=== PATIENT | female | born 1970 | race African-American/Black ===

== ENCOUNTER 2018-06-18 10:12 | Emergency (ER) | payer SELFPAY ==
[2018-06-18 10:55] LABS: Bilirubin Negative (Negative); Blood, Urine Negative (Negative); Clarity CLEAR (Clear); Glucose, Urine (Dipstick) Negative (Negative); Leukocyte Negative (Negative); Nitrite Negative (Negative); Protein, Urine (Dipstick) Negative (Neg-Trace); Specific Gravity, Urine 1.006 (1.002-1.036); Urobilinogen 0.2 mg/dL (0.2-1.0); pH, Urine 7.5 (5.0-9.0)
--- NOTE | 2018-06-18 10:56 | RAD ---
CHEST 1 VIEW: Date: 06/18/18 HISTORY: Cough. FINDINGS: Heart size and mediastinum are within normal limits. Lungs are clear of any infiltrative process. No significant bony findings. IMPRESSION: No active intrathoracic disease. POS: [facility]
[2018-06-18 10:57] LABS: Pregnancy Test - Urine (BHCG) Negative (Negative); Pregu Control Background? CLEAR/WHITE (CLR/WHITE); Pregu Control Bar Appear? YES (CONTROL BAR); Specific Gravity 1.006 (1.002-1.036)
== END 2018-06-18 11:40 | disposition home or self-care (01) ==
LOC: ERS 10:12
DX: J20.9 Acute bronchitis, unspecified (principal); F17.210 Nicotine dependence, cigarettes, uncomplicated
CPT/HCPCS: 71045; 81003; 81025; 87086; 87804

== ENCOUNTER 2018-08-24 16:43 | Emergency (ER) | payer SELFPAY ==
[2018-08-24] MEDS ORDERED: Ketorolac Tromethamine 60 MG/2 ML VIAL ONE (17:09)
--- NOTE | 2018-08-24 17:40 | RAD ---
XR Knee Rt 4 View STANDARD History: [Knee pain] Comparison: None. Findings: There is a moderate-sized joint effusion. There is a linear lucency superior pole of the pa tella. No acute fracture of the tibia or femur is appreciated. Mild enthesopathic changes of the quadriceps tendon. Impression: 1. Moderate-sized joint effusion without acute displaced fracture appreciated. This may be sequelae o f internal derangement. MRI recommended if clinically warranted nonemergently. 2. Linear lucency of the articular surface of the superior pole of patella, likely osteochondral defe ct. This can be further assessed on the MRI examination. 3. Low-grade degenerative changes of the medial compartment.
== END 2018-08-24 18:11 | disposition home or self-care (01) ==
LOC: ERS 16:43
DX: M17.11 Unilateral primary osteoarthritis, right knee (principal); M76.9 Unspecified enthesopathy, lower limb, excluding foot; F17.210 Nicotine dependence, cigarettes, uncomplicated
CPT/HCPCS: 29125; 96372; J1885

== ENCOUNTER 2019-08-30 10:50 | Emergency (ER) | payer OTHER, SELFPAY ==
[2019-08-30] MEDS ORDERED: Dexamethasone 10 MG/ML VIAL ONE (12:06)
[2019-08-30] MEDS ORDERED: Ketorolac Tromethamine 30 MG/ML VIAL ONE (12:06)
[2019-08-30] MEDS ORDERED: HYDROcodone/Acetaminophen 10/325 mg Tablet ONE (12:25)
== END 2019-08-30 13:30 | disposition home or self-care (01) ==
LOC: ERS 10:50
DX: M62.830 Muscle spasm of back (principal); M54.5 Low back pain; F17.210 Nicotine dependence, cigarettes, uncomplicated
CPT/HCPCS: 96372; 99283; J1100; J1885

== ENCOUNTER 2020-08-24 09:03 | Emergency (ER) | payer OTHER ==
[2020-08-24 09:42] LABS: #Basophils 0.1 thou/uL (0.0-0.2); #Lymphocytes 3.2 thou/uL (1.20-3.40); #Monocytes 0.4 thou/uL (0.11-0.59); %Basophils 1.6 % (0.0-1.0); %Eosinophils 0.5 % (0.0-10.0); %Lymphocytes 47.6 % (21.0-51.0); %Monocytes 5.9 % (0.0-10.0); %Neutrophils 44.4 % (42.0-75.0); Mean Corpuscular HGB CONC 32.3 g/dL (32.0-36.0); Mean Corpuscular Hemoglobin 29.9 pg (27.0-31.0); Mean Corpuscular Volume 92.7 fL (78.0-98.0); Mean Platelet Volume 7.2 fL (7.4-10.4); Platelet Count 356 thou/uL (130-400); Red Blood Cell (RBC) Count 4.35 mill/uL (4.20-5.40); White Blood Cell (WBC) Count 6.7 thou/uL (4.8-10.8)
[2020-08-24 09:55] LABS: ALT (SGPT) 18 U/L (8-55); AST (SGOT) 17 U/L (5-34); Albumin 3.7 g/dL (3.5-5.0); Alkaline Phosphatase 65 U/L (40-110); Anion Gap 9 mmol/L (10-20); BUN (Urea Nitrogen) 12 mg/dL (7.0-18.7); Bilirubin, Total 0.3 mg/dL (0.2-1.2); Calc. Creatinine Clearance 0 mL/min (70-130); Calcium 9.5 mg/dL (7.8-10.44); Carbon Dioxide 29 mmol/L (22-29); Chloride 106 mmol/L (98-107); Globulin 3.7 g/dL (2.4-3.5); Glucose 125 mg/dL (70-105); Protein, Total 7.4 g/dL (6.0-8.3); Sodium 140 mmol/L (136-145)
== END 2020-08-24 11:59 | disposition home or self-care (01) ==
LOC: ERS 09:03
DX: R07.9 Chest pain, unspecified (principal); M79.622 Pain in left upper arm; F17.210 Nicotine dependence, cigarettes, uncomplicated
CPT/HCPCS: 36415; 71045; 80053; 83735; 84443; 84484; 85025; 93005

== ENCOUNTER 2022-02-22 01:51 | Emergency (ER) | payer OTHER ==
[2022-02-22 03:34] LABS: Bilirubin Negative (Negative); Blood, Urine Negative (Negative); Clarity Clear (Clear); Glucose, Urine (Dipstick) Normal (Negative); Ketone, Urine Negative (Negative); Leukocyte Negative Leu/uL (Negative); Nitrite Negative (Negative); Protein, Urine (Dipstick) 10 mg/dL (Neg-Trace); Specific Gravity, Urine 1.036 (1.002-1.036); Urobilinogen 3 mg/dL (Less than 2); pH, Urine 6.5 (5.0-9.0)
[2022-02-22 04:59] LABS: #Basophils 0.1 thou/uL (0.0-0.2); #Eosinphils 0.1 thou/uL (0.0-0.7); #Lymphocytes 3.6 thou/uL (1.20-3.40); #Monocytes 0.5 thou/uL (0.11-0.59); #Neutrophils 3.1 thou/uL (1.40-6.50); %Basophils 0.9 % (0.0-1.0); %Eosinophils 1.2 % (0.0-10.0); %Lymphocytes 48.7 % (21.0-51.0); %Monocytes 7.1 % (0.0-10.0); %Neutrophils 42.2 % (42.0-75.0); Hemoglobin 13.6 g/dL (12.0-16.0); Mean Corpuscular HGB CONC 33.2 g/dL (32.0-36.0); Mean Corpuscular Hemoglobin 31.1 pg (27.0-31.0); Mean Corpuscular Volume 93.8 fl (78.0-98.0); Mean Platelet Volume 6.9 fL (7.4-10.4); Platelet Count 359 thou/uL (130-400); RBC Distribution Width 12.8 % (11.5-14.5); Red Blood Cell (RBC) Count 4.37 mill/uL (4.20-5.40); White Blood Cell (WBC) Count 7.4 thou/uL (4.8-10.8)
[2022-02-22 05:25] LABS: ALT (SGPT) 19 U/L (8-55); AST (SGOT) 17 U/L (5-34); Albumin 3.9 g/dL (3.5-5.0); Alkaline Phosphatase 71 U/L (40-110); Anion Gap 11 mmol/L (10-20); BUN (Urea Nitrogen) 17 mg/dL (7.0-18.7); Bilirubin, Total 0.3 mg/dL (0.2-1.2); Calc. Creatinine Clearance 0 mL/min (70-130); Calcium 9.4 mg/dL (7.8-10.44); Carbon Dioxide 31 mmol/L (22-29); Chloride 102 mmol/L (98-107); Estimated GFR 92; Globulin 3.8 g/dL (2.4-3.5); Glucose 101 mg/dL (70-105); Lipase 43 U/L (8-78); Potassium 3.9 mmol/L (3.5-5.1); Protein, Total 7.7 g/dL (6.0-8.3); Sodium 140 mmol/L (136-145)
[2022-02-22] MEDS ORDERED: Iopamidol-370 76% 500 ML 1 ML ONE (09:56)
== END 2022-02-22 05:32 | disposition home or self-care (01) ==
LOC: ERS 01:51
DX: K57.92 Diverticulitis of intestine, part unspecified, without perforation or abscess without bleeding (principal); I10 Essential (primary) hypertension; F17.210 Nicotine dependence, cigarettes, uncomplicated
CPT/HCPCS: 36415; 74177; 80053; 81003; 83690; 85025; Q9967

== ENCOUNTER 2022-03-03 09:49 | Emergency (ER) | payer MEDICAID, OTHER ==
[~2022-03-03 09:49] MED LIST: Iopamidol-370 76% 500 ML 1 ML ONE
[2022-03-03 11:02] LABS: #Eosinphils 0.1 thou/uL (0.0-0.7); #Lymphocytes 3.5 thou/uL (1.20-3.40); #Monocytes 0.4 thou/uL (0.11-0.59); #Neutrophils 3.7 thou/uL (1.40-6.50); %Basophils 0.5 % (0.0-1.0); %Lymphocytes 45.1 % (21.0-51.0); %Monocytes 5.6 % (0.0-10.0); %Neutrophils 47.8 % (42.0-75.0); Hemoglobin 13.2 g/dL (12.0-16.0); Mean Corpuscular HGB CONC 33.6 g/dL (32.0-36.0); Mean Corpuscular Hemoglobin 31.3 pg (27.0-31.0); Mean Corpuscular Volume 93.1 fl (78.0-98.0); Mean Platelet Volume 7.6 fL (7.4-10.4); Platelet Count 345 10x3/uL (130-400); Red Blood Cell (RBC) Count 4.22 mill/uL (4.20-5.40); White Blood Cell (WBC) Count 7.8 10x3/uL (4.8-10.8)
[2022-03-03 11:06] LABS: BHCG - Serum Negative (NEGATIVE); Pregs Control Background? CLEAR/WHITE (CLR/WHITE); Pregs Control Bar Appear? YES (CONTROL BAR)
[2022-03-03 11:13] LABS: Bilirubin Negative (Negative); Blood, Urine Negative (Negative); Clarity Clear (Clear); Glucose, Urine (Dipstick) Normal (Negative); Ketone, Urine Negative (Negative); Leukocyte Negative Leu/uL (Negative); Nitrite Negative (Negative); Protein, Urine (Dipstick) Negative (Neg-Trace); Specific Gravity, Urine 1.014 (1.002-1.036); Urobilinogen Normal mg/dL (Less than 2)
[2022-03-03 12:17] LABS: Albumin 3.7 g/dL (3.5-5.0)
[2022-03-03 12:18] LABS: Chloride 104 mmol/L (98-107); Potassium 3.7 mmol/L (3.5-5.1); Sodium 138 mmol/L (136-145)
[2022-03-03 12:19] LABS: Calcium 9.2 mg/dL (7.8-10.44); Glucose 73 mg/dL (70-105)
[2022-03-03 12:20] LABS: Globulin 3.7 g/dL (2.4-3.5); Protein, Total 7.4 g/dL (6.0-8.3)
[2022-03-03 12:21] LABS: Anion Gap 12 mmol/L (10-20); Bilirubin, Total 0.5 mg/dL (0.2-1.2); Carbon Dioxide 26 mmol/L (22-29)
[2022-03-03 12:22] LABS: Alkaline Phosphatase 64 U/L (40-110)
[2022-03-03 12:23] LABS: Calc. Creatinine Clearance 0 mL/min (70-130); Estimated GFR 99
[2022-03-03 12:24] LABS: BUN (Urea Nitrogen) 12 mg/dL (7.0-18.7)
[2022-03-03 12:25] LABS: ALT (SGPT) 16 U/L (8-55); AST (SGOT) 19 U/L (5-34)
[2022-03-03 12:26] LABS: Lipase 126 U/L (8-78)
[2022-03-03] MEDS ORDERED: Ketorolac Tromethamine 30 MG/ML VIAL ONE (12:55)
== END 2022-03-03 13:02 | disposition home or self-care (01) ==
LOC: EDSEX → ERS 09:49 → EDUNIT# 09:49 → ERS 13:02
DX: M54.50 Low back pain, unspecified (principal); I10 Essential (primary) hypertension; Z87.891 Personal history of nicotine dependence
CPT/HCPCS: 36415; 74177; 80053; 81003; 83605; 83690; 84703; 85025; 87086; 96374; J1885; Q9967

== ENCOUNTER 2022-05-07 06:47 | Emergency (ER) | payer OTHER ==
[2022-05-07 08:19] LABS: #Lymphocytes 2.6 thou/uL (1.20-3.40); #Monocytes 0.4 thou/uL (0.11-0.59); #Neutrophils 2.6 thou/uL (1.40-6.50); %Basophils 0.8 % (0.0-1.0); %Eosinophils 0.6 % (0.0-10.0); %Lymphocytes 45.9 % (21.0-51.0); %Monocytes 7.3 % (0.0-10.0); %Neutrophils 45.4 % (42.0-75.0); Hemoglobin 13.8 g/dL (12.0-16.0); Mean Corpuscular HGB CONC 33.5 g/dL (32.0-36.0); Mean Corpuscular Hemoglobin 31.1 pg (27.0-31.0); Mean Corpuscular Volume 92.7 fl (78.0-98.0); Mean Platelet Volume 7.4 fL (7.4-10.4); Platelet Count 371 10x3/uL (130-400); RBC Distribution Width 12.6 % (11.5-14.5); Red Blood Cell (RBC) Count 4.45 mill/uL (4.20-5.40); White Blood Cell (WBC) Count 5.6 10x3/uL (4.8-10.8)
[2022-05-07 08:35] LABS: ALT (SGPT) 26 U/L (8-55); AST (SGOT) 25 U/L (5-34); Alkaline Phosphatase 61 U/L (40-110); Anion Gap 12 mmol/L (10-20); BUN (Urea Nitrogen) 13 mg/dL (7.0-18.7); Bilirubin, Total 0.5 mg/dL (0.2-1.2); Calc. Creatinine Clearance 0 mL/min (70-130); Calcium 9.6 mg/dL (7.8-10.44); Carbon Dioxide 29 mmol/L (22-29); Chloride 101 mmol/L (98-107); Estimated GFR 91; Globulin 3.9 g/dL (2.4-3.5); Glucose 104 mg/dL (70-105); Potassium 3.4 mmol/L (3.5-5.1); Protein, Total 7.9 g/dL (6.0-8.3); Sodium 139 mmol/L (136-145)
[2022-05-07] MEDS ORDERED: diphenhydrAMINE 50 MG/ML VIAL ONE (13:28)
[2022-05-07] MEDS ORDERED: Metoclopramide HCl 10 MG/2 ML VIAL ONE (13:28)
[2022-05-07] MEDS ORDERED: Potassium Chloride 20 MEQ TAB ONE (14:25)
[2022-05-07 15:45] LABS: SARS-CoV-2 NAA Rapid Test DETECTED (NotDetected)
== END 2022-05-07 16:18 | disposition home or self-care (01) ==
LOC: ERS 06:47
DX: U07.1 COVID-19 (principal); I10 Essential (primary) hypertension; E66.9 Obesity, unspecified; Z87.891 Personal history of nicotine dependence; Z79.899 Other long term (current) drug therapy
CPT/HCPCS: 36415; 71045; 80053; 85025; 93005; 96365; J1200; J2765

== ENCOUNTER 2022-05-29 14:44 | Emergency (ER) | payer MEDICAID, OTHER ==
[2022-05-29 15:28] LABS: Hemoglobin 14.2 g/dL (12.0-16.0); Mean Corpuscular HGB CONC 33.6 g/dL (32.0-36.0); Mean Corpuscular Hemoglobin 31.4 pg (27.0-31.0); Mean Corpuscular Volume 93.5 fl (78.0-98.0); Mean Platelet Volume 7.2 fL (7.4-10.4); Platelet Count 408 10x3/uL (130-400); RBC Distribution Width 12.9 % (11.5-14.5); White Blood Cell (WBC) Count 8.7 10x3/uL (4.8-10.8)
[2022-05-29 15:48] LABS: Lymphocytes 62 % (21-51); MDiff Complete? YES; Monocytes 5 % (0-10); Neutrophil 33 % (42-75); Platelet Morphology Comment Appears Increased; RBC Morphology Normal
[2022-05-29 15:49] LABS: ALT (SGPT) 18 U/L (8-55); AST (SGOT) 20 U/L (5-34); Albumin 4.2 g/dL (3.5-5.0); Alkaline Phosphatase 74 U/L (40-110); Anion Gap 14 mmol/L (10-20); BUN (Urea Nitrogen) 12 mg/dL (7.0-18.7); Bilirubin, Total 0.2 mg/dL (0.2-1.2); Calc. Creatinine Clearance 0 mL/min (70-130); Calcium 9.3 mg/dL (7.8-10.44); Carbon Dioxide 29 mmol/L (22-29); Chloride 100 mmol/L (98-107); Estimated GFR 91; Globulin 3.7 g/dL (2.4-3.5); Glucose 91 mg/dL (70-105); Lipase 40 U/L (8-78); Protein, Total 7.9 g/dL (6.0-8.3); Sodium 139 mmol/L (136-145)
[2022-05-29] MEDS ORDERED: Aspirin Chewable 81 MG TAB ONE (16:10)
[2022-05-29] MEDS ORDERED: Ketorolac Tromethamine 30 MG/ML VIAL ONE (16:10)
== END 2022-05-29 17:39 | disposition home or self-care (01) ==
LOC: ERS 14:44
DX: B34.9 Viral infection, unspecified (principal); M54.50 Low back pain, unspecified; I10 Essential (primary) hypertension; Z87.891 Personal history of nicotine dependence
CPT/HCPCS: 36415; 71045; 80053; 83690; 84484; 85025; 93005; 96372; J1885